=== PATIENT | female | born 1980 ===

== ENCOUNTER 2019-06-06 19:59 | Inpatient (IN) | payer BC ==
[~2019-06-06] VITALS: Ht 162.6 cm; Wt 76.4 kg
[2019-06-06] VITALS (12 sets, daily range): BP systolic 105–165; BP diastolic 70–91; PULSE 63–78; TEMP 97.7–98.3
[2019-06-06] MEDS ORDERED: PRENATAL PO (20:05)
[2019-06-06] MEDS ORDERED: PROAIR HFA0.09 MG/AC IH (20:05)
--- NOTE | 2019-06-06 20:05 | NUR ---
PT ARRIVED TO UNIT AMBULATORY WITH SPOUSE WITH CONCERNS OF POSSIBLE SROM. ORIENTED TO ROOM, CHANGED INTO GOWN. EFM X2 APPLIED, VS OBTAINED. CLEAR FLUID VISIBLE WITH EXAM, SVE OF 3/80/-2.
[2019-06-06] MEDS ORDERED: PROBIOTIC FORMU1 CAP PO (20:28)
[2019-06-06] MEDS ORDERED: ZYRTEC5 MG PO (20:29)
[2019-06-06 21:45] LABS: BASO % 0.3 % (0.0-2.0); EOS # 0.2 (0.0-0.7); EOS % 2.2 % (0-4.0); GRAN # 5.8 (1.4-6.5); GRAN % 64.7 % (42.2-75.2); HEMATOCRIT 37.3 % (37.0-47.0); HEMOGLOBIN 12.6 g/dl (12.5-16.0); LYMPH # 2.4 (1.2-3.4); LYMPH % 27.1 % (20.0-51.0); MEAN CELL VOLUME 91 fl (80.0-100.0); MEAN CORPUSCULAR HEMOGLOBIN 31 pg (27.0-31.0); MEAN CORPUSCULAR HGB CONC 34 g/dl (33.0-37.0); MEAN PLATELET VOLUME 12.2 fl (7.4-10.4); MONO # 0.5 (0.1-0.6); MONO % 5.3 % (1.7-9.3); PLATELET COUNT 152 K/mm3 (130-400); RED BLOOD COUNT 4.09 M/mm3 (4.10-5.30); REDCELL DISTRIBUTION WIDTH-CV 13.5 % (11.5-14.5)
[2019-06-06] MEDS ORDERED: MOTRIN 800800 MG/TAB PO (22:21)
--- NOTE | 2019-06-06 23:06 | NUR ---
Radha MCMILLAN, [employer]CHITECT NOTIFIED OF PT REQUEST FOR EPIDURAL. LR BOLUS STARTED.
[2019-06-07] VITALS (13 sets, daily range): BP systolic 96–126; BP diastolic 53–85; PULSE 59–102; TEMP 97.2–98
--- NOTE | 2019-06-07 00:03 | NUR ---
2330- Radha MCMILLAN CRNA IN ROOM FOR EPIDURAL PLACEMENT. PT IN BATHROOM AT THIS TIME. 2331- PT SITTING AT BEDSIDE FOR EPIDURAL PLACEMENT. BP SET TO EVERY 5 MINUTES, PULSE OX ON. 2342- SINGLE SHOT GIVEN BY Radha MCMILLAN CRNA 2343- TEST DOSE GIVEN BY Radha MCMILLAN CRNA. 2347- PT REPOSITIONED IN SEMIFOWLERS FOLLOWING EPIDURAL PLACEMENT. DR. SINGH IN ROOM TO EVALUATE PT. WILL RETURN AFTER PT MORE COMFORTABLE WITH EPIDURAL TO PERFORM SVE. 2355- LATE DECELERATION INTO THE 80'S, THIS NURSE REQUESTS DR. SINGH TO EVALUATE. DR. SINGH IN ROOM, PT COMPLETE AND READY TO BEGIN PUSHING. 0000- DELIVERY OF HEAD 0001- SPONTANEOUS VAGINAL DELIVERY OF VIABLE BABY BOY FOLLOWING 30 SECOND SHOULDER DYSTOCIA RESOLVED BY NIMA. BABY TO MOTHER'S CHEST, CORD CLAMPED AND CUT BY DR. SINGH. BABY CARES ASSUMED BY SERVANDO TUBBS. 0003- SPONTANEOUS DELIVERY OF INTACT PLACENTA. PITOCIN STARTED PER PROTOCOL. DR. SINGH BEGINS REPAIR OF 2ND DEGREE LACERATION. 0010- RECOVERY STARTED.
--- NOTE | 2019-06-07 02:50 | NUR ---
PT UP TO BATHROOM, ABLE TO VOID 600MLS. PERICARE PROVIDED, MESH UNDERWEAR AND PERIPAD APPLIED. EPIDURAL REMOVED, TIP INTACT. PT AMBULATED WELL TO . ORIENTED TO NEW ROOM, QUESTIONS ENCOURAGED AND ANSWERED.
--- NOTE | 2019-06-07 10:58 | NUR ---
Initial visit attempt; Mom indisposed, Cashier Greeter spoke with Dad, congratulating him for the of his son and thanking both he and his for choosing [place].
[2019-06-08 07:00] VITALS: BP 109/74; PULSE 63; TEMP 97.6
== END 2019-06-08 11:20 | disposition home or self-care (01) | DRG 807 ==
LOC: LDRO 19:59 → LDR 20:30 → OB 06-07 03:05
PROVIDERS: ADMIT Obstetrics & Gynecology
PROC: 10E0XZZ Delivery of Products of Conception, External Approach (ICD-10-PCS; principal; 2019-06-07)
PROC: 0KQM0ZZ Repair Perineum Muscle, Open Approach (ICD-10-PCS; 2019-06-07)
DX: O66.0 Obstructed labor due to shoulder dystocia (principal); Z37.0 Single live birth; O70.1 Second degree perineal laceration during delivery; Z3A.38 38 weeks gestation of pregnancy
CPT/HCPCS: J2590; J2795; J7120

== ENCOUNTER → 2020-07-10 | Outpatient (CLI) | payer BC ==
[~2020-07-10] MED LIST: MOTRIN 800800 MG/TAB PO; PRENATAL PO; PROAIR HFA0.09 MG/AC IH; PROBIOTIC FORMU1 CAP PO; ZYRTEC5 MG PO
== END ==
LOC: ZCOL.LAB 23:01
DX: R51.9 Headache, unspecified (principal); R07.89 Other chest pain; Z20.828 Contact with and (suspected) exposure to other viral communicable diseases